=== PATIENT | male | born 1995 | race Caucasian/White ===

== ENCOUNTER 2017-03-17 18:04 | Emergency (ER) | payer OTHER ==
[2017-03-17 18:23] VITALS: RESP 16; TEMP 98.8
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
[2017-03-17] MEDS ORDERED: IBUPROFEN 600 MG TAB PO ONE (20:15)
[2017-03-17] MEDS ORDERED: HYDROCOD/APAP 5/325 PREPACK#6 BTL TAKEHOME ONE (20:24)
[2017-03-17 20:44] VITALS: BP 135/87; PULSE 93; O2SAT 95
== END 2017-03-17 20:45 | disposition home or self-care (01) ==
DX: S52.125A Nondisplaced fracture of head of left radius, initial encounter for closed fracture (principal); V18.9XXA Unspecified pedal cyclist injured in noncollision transport accident in traffic accident, initial encounter; Y92.410 Unspecified street and highway as the place of occurrence of the external cause
CPT/HCPCS: A4565